=== PATIENT | male | born 1970 | race Caucasian/White ===

== ENCOUNTER 2017-05-18 02:37 | Emergency (ER) | payer SELFPAY ==
[2017-05-18 02:54] VITALS: BP 162/94; PULSE 113; TEMP 99.9; BMI 29.5
--- NOTE | 2017-05-18 02:56 | PDOC ---
History of Present Illness - General History Source: Patient <SumankinaDaniele - Last Filed: 05/18/17 04:16> - General History Source: Patient Exam Limitations: No Limitations - History of Present Illness Initial Comments: 05/18/17 03:30 The patient is a 46-year-old male with a significant past medical history of WI (s/p stent in 08/2015) and HTN, who presents to the emergency department with palpitations. He states he has been having intermittent palpitations for the last 3 months, but comes in today because he states it feels uncomfortable. He reports the palpitations were severe 2 nights ago. He describes the palpitations as a strong beat. He denies any chest pain. He states the palpitations are worsened when lying down or when he has gas. He denies any new changes in medications. The patient denies chest pain, shortness of breath, visual changes, headache and lightheadedness. The patient denies fever, chills, nausea, vomit, diarrhea and constipation. The patient denies dysuria, frequency, urgency and hematuria. Allergies: NKDA Past Surgical History: s/p cardiac stent Social History: current smoker (4 cigarettes per day), no other toxic habits reported PCP: Dr. Carter <Kaylen Tello - Last Filed: 05/18/17 04:20> - General Chief Complaint: Palpitations Stated Complaint: PALPATATIONS Time Seen by Provider: 05/18/17 02:55 Past History - Past Medical History HTN: Yes (non compliant with meds) - Suicide/Smoking/Psychosocial Hx Smoking History: Never smoked Have you smoked in the past 12 months: No Number of Cigarettes Smoked Daily: 10 Information on smoking cessation initiated: No Hx Alcohol Use: No Drug/Substance Use Hx: No <Daniele Nieto - Last Filed: 05/18/17 04:16> <Kaylen Tello - Last Filed: 05/18/17 04:20> - Past Medical History Allergies/Adverse Reactions: Allergies Allergy/AdvReac Type Severity Reaction Status Date / Time No Known Allergies Allergy Verified 05/18/17 02:53 Home Medications: Ambulatory Orders NK [No Known Home Medication] 08/21/15 Review of Systems - Review of Systems Able to Perform ROS?: Yes Comments:: 05/18/17 03:30 CONSTITUTIONAL: Absent: fever, chills, diaphoresis, generalized weakness, malaise, loss of appetite HEENT: Absent: rhinorrhea, nasal congestion, throat pain, throat swelling, difficulty swallowing, mouth swelling, ear pain, eye pain, visual changes CARDIOVASCULAR: Present: (+) palpitations Absent: chest pain, syncope, irregular heart rate, lightheadedness, peripheral edema RESPIRATORY: Absent: cough, shortness of breath, dyspnea with exertion, orthopnea, wheezing, stridor, hemoptysis GASTROINTESTINAL: Absent: abdominal pain, abdominal distension, nausea, vomiting, diarrhea, constipation, melena, hematochezia GENITOURINARY: Absent: dysuria, frequency, urgency, hesitancy, hematuria, flank pain, genital pain MUSCULOSKELETAL: Absent: myalgia, arthralgia, joint swelling SKIN: Absent: rash, itching, pallor HEMATOLOGIC/IMMUNOLOGIC: Absent: easy bleeding, easy bruising, lymphadenopathy, frequent infections ENDOCRINE: Absent: unexplained weight gain, unexplained weight loss, heat intolerance, cold intolerance NEUROLOGIC: Absent: headache, focal weakness or paresthesias, dizziness, unsteady gait, seizure, mental status changes, bladder or bowel incontinence PSYCHIATRIC: Absent: anxiety, depression, suicidal or homicidal ideation, hallucinations. <Kaylen Tello - Last Filed: 05/18/17 04:20> *Physical Exam - Vital Signs Last Vital Signs Temp Pulse Resp BP Pulse Ox 99.9 F H 113 H 20 162/94 99 05/18/17 02:53 05/18/17 02:53 05/18/17 02:53 05/18/17 02:53 05/18/17 02:53 <Daniele Nieto - Last Filed: 05/18/17 04:16> - Vital Signs Last Vital Signs Temp Pulse Resp BP Pulse Ox 99.9 F H 113 H 20 162/94 99 05/18/17 02:53 05/18/17 02:53 05/18/17 02:53 05/18/17 02:53 05/18/17 02:53 - Physical Exam Comments: 05/18/17 04:20 GENERAL: Well developed, well nourished. Awake and alert. No acute distress. HEENT: Normocephalic, atraumatic. PERRLA, EOMI. No conjunctival pallor. Sclera are non- icteric. Moist mucous membranes. Oropharynx is clear. NECK: Supple. Full ROM. No JVD. Carotid pulses 2+ and symmetric, without bruits. No thyromegaly. No lymphadenopathy. CARDIOVASCULAR: Regular rate and rhythm. No murmurs, rubs, or gallops. Distal pulses are 2+ and symmetric. PULMONARY: No evidence of respiratory distress. Lungs clear to auscultation bilaterally. No wheezing, rales or rhonchi. ABDOMINAL: Soft. Non-tender. Non-distended. No rebound or guarding. No organomegaly. Normoactive bowel sounds. MUSCULOSKELETAL Normal range of motion at all joints. No bony deformities or tenderness. No CVA tenderness. EXTREMITIES: No cyanosis. No clubbing. No edema. No calf tenderness. SKIN: Warm and dry. Normal capillary refill. No rashes. No jaundice. NEUROLOGICAL: Alert, awake, appropriate. Cranial nerves 2-12 intact. No deficits to light touch and temperature in face, upper extremities and lower extremities. No motor deficits in the in face, upper extremities and lower extremities. Normoreflexic in the upper and lower extremities. Normal speech. Toes are down- going bilaterally. Gait is normal without ataxia. PSYCHIATRIC: Cooperative. Good eye contact. Appropriate mood and affect. <Kaylen Tello - Last Filed: 05/18/17 04:20> Heart Score/ECG Review - ECG Impressions Comment:: 05/18/17 03:29 Normal sinus rhythm Normal ECG <Kaylen Tello - Last Filed: 05/18/17 04:20> ED Treatment Course - LABORATORY CBC & Chemistry Diagram: 05/18/17 03:17 05/18/17 03:17 <Daniele Nieto - Last Filed: 05/18/17 04:16> - LABORATORY CBC & Chemistry Diagram: 05/18/17 03:17 05/18/17 03:17 <Kaylen Tello - Last Filed: 05/18/17 04:20> Medical Decision Making - Medical Decision Making 05/18/17 04:18 Pt denies any palpitations at this time. Denies Chest pain. Pt advised to follow up with his family life educator today. Dr. Nieto: The scribe's documentation has been prepared under my direction and personally reviewed by me in its entirery. I confirm that the note above accurately reflects all work, treatment, procedures, and medical decision making performed by me. <Daniele Nieto - Last Filed: 05/18/17 04:16> *DC/Admit/Observation/Transfer - Discharge Dispostion Admit: No <Daneile Nieto - Last Filed: 05/18/17 04:16> - Attestations Scribe Attestion: 05/18/17 03:30 Documentation prepared by Kaylen Tello, acting as medical record coder for Daniele Nieto MD/DO. <Kaylen Tello - Last Filed: 05/18/17 04:20> Diagnosis at time of Disposition: Palpitations Rhabdomyolysis Qualifiers: Rhabdomyolysis type: non-traumatic Qualified Code(s): M62.82 - Rhabdomyolysis - Discharge Dispostion Disposition: HOME Condition at time of disposition: Stable - Referrals Referrals: Guille Carter MD [Primary Care Provider] - - Patient Instructions Printed Discharge Instructions: DI for Rhabdomyolysis, DI for Palpitations Additional Instructions: Please follow up with your family life educator by today. Drink plenty of fluids particularly water and make sure you are urinating often. - Post Discharge Activity
[2017-05-18 03:24] LABS: BASO # 0.1 #; EOS # 0.2 #; EOS % 2.7 % (0-4.5); LYMPH # 1.9; MCH 29.4 pg (25.7-33.7); MCHC 34.2 g/dl (32.0-35.9); MONO # 0.6 #; NEUT # 5.1 #; NEUT % 64.4 % (42.8-82.8); PLATELET COUNT 208 K/MM3 (134-434); RDW 13.5 % (11.9-15.9)
[2017-05-18 03:39] LABS: INR 1.05 (0.82-1.09); PROTHROMBIN TIME (PATIENT) 11.9 SEC (9.98-11.88)
[2017-05-18 03:45] LABS: URINE APPEARANCE CLEAR; URINE BILIRUBIN NEGATIVE (NEGATIVE); URINE BLOOD NEGATIVE (NEGATIVE); URINE COLOR YELLOW; URINE GLUCOSE (UA) NEGATIVE (NEGATIVE); URINE KETONE TRACE (NEGATIVE); URINE LEUK ESTERASE NEGATIVE (NEGATIVE); URINE NITRITE NEGATIVE (NEGATIVE); URINE UROBILINOGEN NEGATIVE mg/dL (0.2-1.0)
[2017-05-18 03:50] LABS: ANION GAP 11 (8-16); BILIRUBIN,TOTAL 0.8 mg/dL (0.2-1.0); CALCIUM 8.7 mg/dL (8.5-10.1); CO2 26 mmol/L (21-32); CREATININE 0.9 mg/dL (0.7-1.3); GLUCOSE,RANDOM 101 mg/dL (74-106); SGOT/AST 81 U/L (15-37); SGPT/ALT 89 U/L (12-78); TOT PROT 6.5 g/dl (6.4-8.2)
[2017-05-18 03:51] LABS: URINE PROTEIN 1+ (NEGATIVE)
[2017-05-18 03:51] LABS: ALK PHOS 37 U/L (45-117)
[2017-05-18 03:53] LABS: URINE HYALINE CAST 1 /lpf; URINE MUCUS RARE; URINE RBC <1 /hpf (0-3); URINE WBC 1 /hpf (3-5)
[2017-05-18 04:00] LABS: URINE MARIJUANA THC NEGATIVE ng/ml (CUTOFF=50)
[2017-05-18 04:04] LABS: CPK 5221 IU/L (39-308); TROPONIN I < 0.02 ng/ml (0.00-0.05)
[2017-05-18] MEDS ORDERED: POTASSIUM CHLORIDE TABS 20 MEQ TABLET.ER (FP) PO ONE ×2 (04:09→04:25)
--- NOTE | 2017-05-18 09:22 | EKG ---
Test Reason : Blood Pressure : / mmHG Vent. Rate : 093 BPM Atrial Rate : 093 BPM P-R Int : 172 ms QRS Dur : 100 ms QT Int : 350 ms P-R-T Axes : 009 000 021 degrees QTc Int : 435 ms NORMAL SINUS RHYTHM NON-SPECIFIC INTRA-VENTRICULAR CONDUCTION DELAY WHEN COMPARED WITH ECG OF 21-AUG-2015 21:14, NO SIGNIFICANT CHANGE WAS FOUND Confirmed by GÓMEZ PATEL MD ([id number]) on 05/18/2017 9:21:50 AM Referred By: Confirmed By:GÓMEZ PATEL MD
[2017-05-18 20:28] LABS: URINE LEUK ESTERASE NEGATIVE (NEGATIVE)
== END 2017-05-18 04:39 | disposition home or self-care (01) ==
LOC: JER 02:37
DX: M62.82 Rhabdomyolysis (principal); R00.2 Palpitations; I10 Essential (primary) hypertension
CPT/HCPCS: 36415; 80053; 80307; 81003; 81015; 82550; 82553; 83735; 84484; 85025; 85610; 93005; 93010; 99282-25

== ENCOUNTER 2018-09-05 00:12 | Emergency (ER) | payer OTHER ==
[2018-09-05 00:39] VITALS: TEMP 98.9; BMI 28.8
--- NOTE | 2018-09-05 00:49 | PDOC ---
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 +loose BM, with alot of bright red blood. Afterwards, brief episode of abdominal cramping, otherwise no n/v/d, f/c. no prior episodes of rectal bleeding. no colonoscopy use. , No sick contacts or travel. No new changes in medications. No suspicious food intake He does take ASA 81mg daily; no AC use. no extensive NSAID use. Allergies: None Past Medical History: HTN, HLD, MO/CAD Social history: Lives with family. Occasional tobacco and ETOH use. Surgical history: PCI Meds: as documented in EMR Review of systems Constitutional: no fevers or chills. HEENT: no headache or dizziness. CVS: no cp or syncope. Resp: no sob. No cough. Gastrointestinal: no abdominal pain, nausea or vomiting. +rectal bleeding. Genitourinary: no urinary sx, hematuria. MUSCULOSKELETAL: No joint pain and swelling. No neck or back pain. SKIN: no redness or skin changes, no discharge, no rash. No wounds. Hematologic: no easy bruising/bleeding. NEUROLOGIC: No headache, dizziness, LOC or altered mental status. Psych: +anxious Allergic/Immunologic: no allergies All other systems reviewed and negative, or as documented in HPI. Physical exam: General: awake and alert, NAD. mildly anxious HEENT: NCAT, PERRL, EOMI, clear conjunctiva, anicteric, moist mucus membranes, clear oropharynx, no oral lesions.. Neck: neck supple, FROM Resp: CTAB, normal and even respirations, no respiratory distress CVS: +mild tachy, no murmurs, 2+ peripheral pulses throughout, no peripheral edema Abdomen: soft, NTND, no peritoneal signs. No CVAT Rectal: normal sphincter tone, no gross blood, no stool no tarry stools or melena. No friable masses. External skin tags but no thrombosed external hemorrhoid. Back: nontender, normal inspection and ROM MSK: no edema, ARMIJO x4, ROM intact. No clubbing or cyanosis. normal bulk and tone. Neuro: alert Psych: mildly anxious. Skin: warm and well perfused, cap refill <2 sec, normal color 09/05/18 00:48 Past History - Past Medical History Allergies/Adverse Reactions: Allergies Allergy/AdvReac Type Severity Reaction Status Date / Time No Known Allergies Allergy Verified 09/05/18 00:17 Home Medications: Ambulatory Orders Aspirin 81 mg PO DAILY 09/05/18 Lisinopril [Zestril] 2.5 mg PO DAILY 09/05/18 Metoprolol Tartrate [Lopressor -] 50 mg PO DAILY 09/05/18 COPD: No HTN: Yes (non compliant with meds) - Surgical History Cardiac Surgery: Yes (2 cardiac stents s/p MO) - Immunization History Immunization Up to Date: Yes - Suicide/Smoking/Psychosocial Hx Smoking History: Current every day smoker Have you smoked in the past 12 months: Yes Number of Cigarettes Smoked Daily: 10 Information on smoking cessation initiated: Yes Hx Alcohol Use: Yes Drug/Substance Use Hx: No Substance Use Type: None *Physical Exam - Vital Signs Last Vital Signs Temp Pulse Resp BP Pulse Ox 98.9 F 105 H 20 153/82 99 09/05/18 00:36 09/05/18 00:36 09/05/18 00:36 09/05/18 00:36 09/05/18 00:36 ED Treatment Course - LABORATORY CBC & Chemistry Diagram: 09/05/18 00:58 09/05/18 00:58 Medical Decision Making - Medical Decision Making 09/05/18 00:48 hpi as documented VS reviewed, mild tachy, but also anxious. hemodynamically appropriate, NAD rectal exam benign, no gross blood, defer guaiac as no stool or blood visualized. abdomen benign basic labs/CBC and chem normal, no anemia lfts mildly elevated, but pt admits to mild transaminitis; no coagulopathy or ETOH/hepatitis history. repeat VS normalized. Pt to be discharged in stable condition. Patient and family made aware of impression and plan, return precautions discussed (including but not limited to worsening pain or symptoms), fevers, or signs of infection, chest pain, respiratory distress, inability to tolerate oral intake, dehydration, syncope, or neurologic changes). Follow up with PMD and/or GI specialist as recommended, follow up information provided, take medications as instructed for duration of time. continue with supportive care, avoid triggers and precipitants. All questions answered to patient's satisfaction and expressed understanding and comfort with this. Patient does not suffer from an acute life-threatening medical condition at this time she is safe for outpatient follow-up. 09/05/18 01:50 09/05/18 01:51 *DC/Admit/Observation/Transfer Diagnosis at time of Disposition: Rectal bleeding, Abnormal LFTs (liver function tests) - Discharge Dispostion Disposition: HOME Condition at time of disposition: Improved Decision to Admit order: No - Referrals Referrals: Eddie Galarza MD [Primary Care Provider] - Ovi Cole MD [Staff Physician] - Mat Crane MD [Staff Physician] - - Patient Instructions Printed Discharge Instructions: DI for Rectal Bleeding Additional Instructions: 1) Please follow-up with your primary care doctor in the next 1-2 days. Please call tomorrow for for any urgent issues. Gastroenterologists referrals given, so you can get colonoscopy for further evaluation. 2) You were given a copy of the tests performed today. Please bring the results with you and review them with your primary care doctor. Your laboratory / results were normal, no bleeding here or during examination. your liver function tests are mildly elevated, but this has been there previously 3) If you have any worsening of symptoms or any other concerns please return to the ED immediately. Return if worsening symptoms including fevers, headache, vomiting, visual or hearing disturbances, abdominal pain, chest pain, shortness of breath, syncope, dehydration, inability to take things by mouth/vomiting, altered mental status, or worsening concerning symptoms. 4) Please continue taking your home medications as directed. Stay well hydrated and rest adequately. make an appointment for followup. If you cannot follow-up with your primary care doctor please return to the ED - Post Discharge Activity
[2018-09-05 01:09] LABS: BASO % 0.3 % (0-2.0); HEMATOCRIT 45.9 % (35.4-49); HEMOGLOBIN 15.9 GM/dL (11.7-16.9); LYMPH % 27.4 % (8-40); MCH 30.8 pg (25.7-33.7); MCHC 34.6 g/dl (32.0-35.9); MEAN PLT VOLUME 8.6 fl (7.5-11.1); MONO % 6.2 % (3.8-10.2); NEUT % 62.1 % (42.8-82.8); PLATELET COUNT 230 K/MM3 (134-434); RBC 5.15 M/mm3 (4.00-5.60); RDW 13.5 % (11.9-15.9); WHITE BLOOD COUNT 9.5 K/mm3 (4.0-10.0)
[2018-09-05 01:46] LABS: ALK PHOS 38 U/L (45-117); ANION GAP 5 MMOL/L (8-16); BILIRUBIN,TOTAL 0.4 mg/dL (0.2-1); BLOOD UREA NITROGEN 14 mg/dL (7-18); CALCIUM 9.1 mg/dL (8.5-10.1); CHLORIDE 106 mmol/L (98-107); CO2 28 mmol/L (21-32); CREATININE 1.1 mg/dL (0.55-1.3); GLUCOSE,RANDOM 132 mg/dL (74-106); POTASSIUM 3.9 mmol/L (3.5-5.1); SGOT/AST 72 U/L (15-37); SGPT/ALT 80 U/L (13-61); SODIUM 138 mmol/L (136-145); TOT PROT 7.3 g/dl (6.4-8.2)
[2018-09-05 02:08] VITALS: BP 149/86; PULSE 79
== END 2018-09-05 02:08 | disposition home or self-care (01) ==
LOC: JER 00:12
DX: K62.5 Hemorrhage of anus and rectum (principal); R94.5 Abnormal results of liver function studies; I25.10 Atherosclerotic heart disease of native coronary artery without angina pectoris; I10 Essential (primary) hypertension; Z95.5 Presence of coronary angioplasty implant and graft; I25.2 Old myocardial infarction; F17.210 Nicotine dependence, cigarettes, uncomplicated; Z91.14 Patient's other noncompliance with medication regimen
CPT/HCPCS: 36415; 80053; 85025; 99283-25